=== PATIENT | female | born 1955 | race Caucasian/White ===

== ENCOUNTER → 2017-07-15 | Outpatient (CLI) | payer OTHER ==
[~2017-07-15] MED LIST: ADVIN50050 INH; ATV5X PO; CELE1CAP30 PO; CYCL10TA6 PO; FLUO20CA35 PO; GABA-112 PO; GUAISYP8 PO; HYDR-4380 PO; HYDR25TA4 PO; LSN40 PO; METO25TA3 PO; NXM/40 PO; OXYSR/20 PO; PRV100 PO; SODI1.1C4 TOP; SUMA100T16 PO; SUMA6KIT2 INJ; ZNTT/150 PO; [UNRECOGNIZED DRUG - OTHER] TOP
--- NOTE | 2017-07-15 16:39 | DIAGNOSTIC IMAGING REPORT ---
L RIBS UNILATERAL WITH PA CHEST CLINICAL HISTORY: Left rib pain COMPARISON STUDY: Chest x-ray dated 05/12/2015 FINDINGS: There are persistent areas of linear scar/atelectasis at the lung bases. No pneumothorax is visualized. There are postsurgical changes of thoracolumbar spinal rodding. No left-sided rib fractures are visualized. No destructive lesions are visualized on conventional radiographic imaging. IMPRESSION: No left-sided rib fractures identified. No evidence of pneumothorax. Electronically signed by: Corey Cervantes M.D. 07/15/2017 4:37 PM Dictated Date/Time: 07/15/2017 4:36 PM
--- NOTE | 2017-07-16 08:52 | Pain Clinic Return Visit ---
Pain Clinic Return Visit Date of Service Jul 15, 2017. Reason For Visit Left-sided headache and left-sided thoracic pain Subjective Patient is a 61-year-old white female who was initially seen in consultation in March with complaints of cervicalgia, headache disorder and right upper extremity paresthesias. Patient was instructed to return to the clinic on day with headache to determine her candidacy for occipital nerve blocks. The patient reports that her headaches have been quiescent until approximate one month ago when she has developed a fairly consistent headache over that timeframe. Her headache is left-sided described as aching and throbbing in characteristic predominately in the occipital region radiating into hemicranial distribution. She rates her headache pain at a 6-10/10. She would like to discuss pursuing occipital nerve block procedure in attempt to diminish her headache. She denies visual disturbances, light sensitivity, sound sensitivities or recent injury to the head/neck. Patient further reports a 3-4 week history of left-sided flank pain. She describes the pain as aching and episodically sharp/stabbing. She denies any injury. She was hospitalized for bundle-branch block with further cardiac testing approximately 2-3 weeks ago. She indicates the symptoms were present prior to hospitalization but appeared to be exacerbated from lying in a hospital bed. She reports some exacerbation with deep breathing, coughing or sneezing activities. She denies pain in the midline of the thoracolumbar spine. Her pain radiates to the anterior axillary line region. She reports that a renal ultrasound was completed which was within normal limits as she did have UTI. Patient has no change in bowel habits. She has no further constitutional complaints. Plan of care discussed with Dr. Jessica Garcia. Home Medications Scheduled Celecoxib (Celecoxib), 200 MG PO DAILY Cyclobenzaprine Hcl (Flexeril), 10 MG PO TID Esomeprazole Magnesium (Nexium), 40 MG PO DAILY Fluoxetine (Prozac), 20 MG PO QAM Fluticasone Prop/Salmeterol (Advair Diskus 500-50 Mcg/Dose), 2 PUFFS INH BID Gabapentin (Neurontin), 300 MG PO TID Hydrochlorothiazide (Hctz), 25 MG PO DAILY Lisinopril (Lisinopril), 40 MG PO DAILY Metoprolol Succ (Toprol Xl) (Toprol-Xl), 25 MG PO DAILY Modafinil (Modafinil), 200 MG PO BID Oxycodone HCl (Oxycontin), 1 TAB PO BID Ranitidine (Zantac), 150 MG PO BID Sodium Fluoride (Dental) (Sf 5000 Plus), 1 APPLN TOP BID Sumatriptan Succinate (Imitrex), 100 MG PO PRN Sumatriptan Succinate (Imitrex Statdose), 1 DOSE INJ DIRECTED [Sf 1.1% Dt Gel], 1 APPLN TOP DIRECTED Scheduled PRN Guaifenesin-Codeine (Guaiatussin Ac), 5-10 ML PO Q4H PRN for Cough Hydrocodone-Acetaminophen (Hydrocodone/Acetaminophen), 1-2 TABS PO Q4-6H PRN for Pain Lorazepam (Lorazepam), 2 TABS PO HS PRN for Anxiety Allergies Coded Allergies: Morphine (Verified Adverse Reaction, Intermediate, SEVERE NAUSEA AND VOMITING, 06/26/15) Sulfa Antibiotics (Verified Adverse Reaction, Mild, VOMITING, 06/26/15) Tramadol (Verified Adverse Reaction, Mild, DIZZY/WOOZY, 06/26/15) Medications & Allergies Reconciled: Yes Review of Systems 10 point review of systems was otherwise negative aside from HPI. Objective Height feet, inches. Weight (Kilograms) (Pounds) Physical Exam Gen.: Patient sitting quietly in exam room in no acute distress. Speech and thought process appropriate. Mood and affect appropriate. Cognition intact. Head: Normocephalic and atraumatic. Patient moderately tender over the supraorbital and supratrochlear nerves bilaterally. Patient nontender over the auriculotemporal nerves bilaterally. Patient tender over the left greater and lesser occipital nerve to direct palpation, minimally tender correspondingly on the right. Neck: Full range of motion without limitation. Paravertebral spasm and tenderness to palpation. Scattered myoneural trigger points present in the proximal mid trapezius regions bilaterally. Patient is tender to provocative testing of the cervical facet joints bilaterally left greater than right-sided approximate level of C2 through C4. Spurling's maneuver increases axial neck pain without a radicular component. Chest wall: Patient nontender with AP and lateral compression. Patient tender over the posterior lateral lower intercostal rib spaces traveling from the paravertebral through the anterior axillary line at approximate level of T8-10. No palpable bladder maladies along the rib. No rashes or skin breakdown present. Back/spine: Well-healed midline surgical incision extending from the lower thoracic through the lumbar spinal location. No focal midline or facet joint tenderness to provocative testing. Neurologic: Cranial nerves grossly intact. Ambulatory function normal. Assessment 1. Occipital neuralgia 2. Multiple sclerosis 3. Left flank pain of unknown etiology 4. Cervicalgia 5. Cervical facet syndrome 6. Status post T10 through S1 thoracolumbar spinal fusion 2014 Recommendations 1. Recommend patient undergo a left-sided greater and lesser occipital nerve block procedure at today's visit and she was agreeable-refer to procedure note below. 2. Recommend a left-sided rib series x-ray today-order provided 3. Will initiate a Medrol Dosepak and attempt to reduce inflammatory response of the chest wall as the patient is finding anti-inflammatories to be moderately beneficial at diminishing symptoms. Further recommendations will made pending response to the Medrol Dosepak and x-ray results. 4. Patient return to clinic in 2 weeks for reevaluation or before as needed GREATER OCCIPITAL NERVE BLOCK Diagnosis: Occipital neuralgia Side injected: Left greater occipital nerve and lesser occipital nerve Surgeon: Ney GONZALEZ Prior to starting, the Patients diagnosis and the procedure were reviewed with the patient in detail. Possible risks and complications including infection, bleeding, damage to surrounding structures and increased pain were discussed. Alternative therapies were also reviewed. Patients questions were answered and they agreed to proceed. Informed consent was obtained. Allergies and medication list was reviewed. The patient was brought to the procedure room and placed in sitting position. Immediately prior to starting the procedure, a time out was conducted with the staff and the patient where the patient was identified, proposed procedure was verified, consent was reviewed and the proper site for the planned procedure was identified. Monitors used included intermittent blood pressure with automated device, continuous pulse oximetry and level of consciousness. Patient was not given any intravenous sedation and constant verbal contact was maintained throughout the procedure. On examination, no signs of skin breakdown or infection were noted at the injection site. The site was cleansed with DuraPrep followed by Betadine. Sterile drapes were applied. Skeletal landmarks were used to identify the greater and lesser occipital nerve on the appropriate side of injection. Using a 25-gauge, 1.5 inch needle 5 mL of a mixture of 0.5% bupivacaine MPF and 40 mg of Kenalog, 2 mL was injected fan like fashion at each site of the greater and lesser occipital nerve after negative aspiration for blood. No complications were noted and the patient's back was cleansed and the patient was returned to the recovery area. The patient's vital signs remained stable throughout the procedure and the patient was discharged home with standard discharge instructions after 15-20 minutes with an adult dumpcart driver.
== END | disposition home or self-care (01) ==
LOC: C.RADBC 16:04
PROVIDERS: ATTEND Physician Assistant
DX: R07.89 Other chest pain (principal)

== ENCOUNTER → 2017-10-22 | Outpatient (CLI) | payer OTHER ==
--- NOTE | 2017-10-22 11:09 | DIAGNOSTIC IMAGING REPORT ---
CHEST 2 VIEWS ROUTINE CLINICAL HISTORY: POST PROCEDURE L INTERCOSTAL NERVE BLOCK COMPARISON STUDY: 05/12/2015 FINDINGS: The cardiac and mediastinal contours remain stable. There are linear left mid and lower lung zone opacities consistent with subsegmental atelectasis. There is no failure. There is no lobar consolidation. There are no pleural effusions. There is no pneumothorax. There are postsurgical changes present within the lower thoracic and lumbar spine.[ IMPRESSION: No evidence of pneumothorax status post a left intercostal nerve block. Electronically signed by: Corey Cervantes M.D. 10/22/2017 11:07 AM Dictated Date/Time: 10/22/2017 11:06 AM
== END | disposition home or self-care (01) ==
LOC: C.RADBC 10:31
PROVIDERS: ATTEND Anesthesiology
DX: Z98.890 Other specified postprocedural states (principal)

== ENCOUNTER → 2017-12-17 | Outpatient (CLI) | payer OTHER ==
[~2017-12-17] MED LIST changes: -OXYSR/20 PO; +RANI150T85 PO; -ZNTT/150 PO
--- NOTE | 2017-12-17 10:44 | DIAGNOSTIC IMAGING REPORT ---
CHEST 2 VIEWS ROUTINE CLINICAL HISTORY: R/O PNEUMOTHORAX dyspnea COMPARISON STUDY: 10/22/2017 FINDINGS: Scattered bibasilar atelectasis. No evidence for pneumothorax. Mild stable cardiomegaly. Postoperative changes low thoracic and upper lumbar spine. IMPRESSION: No acute process. No evidence of pneumothorax. Chronic and postoperative change. The above report was generated using voice recognition software. It may contain grammatical, syntax or spelling errors. Electronically signed by: Martinez Roper M.D. 12/17/2017 10:42 AM Dictated Date/Time: 12/17/2017 10:41 AM
--- NOTE | 2017-12-24 12:15 | CODING QUERY NO DIAGNOSIS ---
TREATMENT RENDERED WITHOUT A DIAGNOSIS 54 To promote full compliance with coding requirements relating to patient care, physician participation is requested in all cases of patient assessment coordinator uncertainty. Please assist us with providing a diagnosis/symptom for the test(s) below: A diagnosis/symptom was not documented on your Order. A valid diagnosis/symptom is required to bill all insurances. Please remember that we are unable to code a diagnosis of rule out, probable, possible, questionable, or suspected. DOS 12/17/17 Tests that require a diagnosis: * CHEST 2 VIEWS DIAGNOSIS: Provider Signature: Date: Thank you Nadya Maguire Health Information Management Once completed, please kindly fax back to [phone] For questions please call [phone]
== END | disposition home or self-care (01) ==
LOC: C.RADBC 10:02
PROVIDERS: ATTEND Anesthesiology
DX: Z09 Encounter for follow-up examination after completed treatment for conditions other than malignant neoplasm (principal); G58.0 Intercostal neuropathy; G35 Multiple sclerosis

== ENCOUNTER → 2018-02-11 | Outpatient (CLI) | payer OTHER ==
[~2018-02-11] MED LIST changes: -HYDR-4380 PO; +HYDR-5688 PO
--- NOTE | 2018-02-11 10:57 | DIAGNOSTIC IMAGING REPORT ---
CHEST 2 VIEWS ROUTINE CLINICAL HISTORY: R/O PNEUMOTHORAX pain COMPARISON STUDY: 12/17/2017 FINDINGS: No evidence pneumothorax. Platelike atelectasis both lung bases. Degenerative and postoperative changes involving the thoracolumbar spine. No significant cardiac enlargement. IMPRESSION: Platelike atelectasis both lung bases. No evidence for pneumothorax. The above report was generated using voice recognition software. It may contain grammatical, syntax or spelling errors. Electronically signed by: Martinez Roper M.D. 02/11/2018 10:55 AM Dictated Date/Time: 02/11/2018 10:55 AM
== END | disposition home or self-care (01) ==
LOC: C.RADBC 10:15
PROVIDERS: ATTEND Anesthesiology
DX: J98.11 Atelectasis (principal)

== ENCOUNTER → 2018-04-29 | Outpatient (CLI) | payer OTHER ==
[~2018-04-29] MED LIST changes: +ANTIBIOTIC EYE; +PRED10TA PO
--- NOTE | 2018-04-29 09:52 | DIAGNOSTIC IMAGING REPORT ---
CHEST 2 VIEWS ROUTINE CLINICAL HISTORY: INTERCOSTAL INJ COMPARISON STUDY: 02/11/2018 FINDINGS: The cardiac and mediastinal contours remain stable. There is no evidence of pneumothorax status post intercostal injection. There are persistent areas of linear atelectasis/scarring at the left lung base. There is a right midlung zone calcified granuloma. There are postsurgical changes of a prior thoracolumbar spinal fusion.[ IMPRESSION: 1. No active disease in the chest 2. No evidence of postprocedure pneumothorax Electronically signed by: Corey Cervantes M.D. 04/29/2018 9:50 AM Dictated Date/Time: 04/29/2018 9:47 AM
== END | disposition home or self-care (01) ==
LOC: C.RADBC 09:25
PROVIDERS: ATTEND Anesthesiology
DX: Z98.890 Other specified postprocedural states (principal)